=== PATIENT | female | born 1980 | race Caucasian/White ===

== ENCOUNTER 2016-11-29 15:05 | Emergency (ER) | payer SELFPAY ==
[2016-11-29 15:19] VITALS: BP 141/79
--- NOTE | 2016-11-29 15:32 | EDM.PDOC ---
ED HPI GENERAL MEDICAL PROBLEM - General Chief Complaint: Upper Extremity Injury/Pain Stated Complaint: RIGHT ARM AND RIGHT HIP PAIN Time Seen by Provider: 11/29/16 15:17 Source of Information: Reports: Patient History Limitations: Reports: No Limitations - History of Present Illness INITIAL COMMENTS - FREE TEXT/NARRATIVE: History of present illness: []Patient was at work and slipped on the floor landing on her right hip and right arm. She states her hip no longer hurts but her arm hurts from her wrist, elbow, humerus and shoulder. Review of systems: As per history of present illness and below otherwise all systems reviewed and negative. Past medical history: As per history of present illness and as reviewed below otherwise noncontributory. Surgical history: As per history of present illness and as reviewed below otherwise noncontributory. Social history: No reported history of drug or alcohol abuse. Family history: As per history of present illness and as reviewed below otherwise noncontributory. Physical exam: General: Well developed, well nourished in NAD HEENT: Atraumatic, normocephalic, pupils reactive, negative for conjunctival pallor or scleral icterus, mucous membranes moist, throat clear, neck supple, nontender, trachea midline. Lungs: Clear to auscultation, breath sounds equal bilaterally, chest nontender. Heart: S1S2, regular, negative for clicks, rubs, or JVD. Abdomen: Soft, nondistended, nontender. Negative for masses or hepatosplenomegaly. Negative for costovertebral tenderness. Pelvis: Stable nontender. Genitourinary: Deferred. Rectal: Deferred. Extremities: Atraumatic, negative for cords or calf pain. Neurovascular unremarkable. Neuro: Awake, alert, oriented. Cranial nerves II through XII unremarkable. Cerebellum unremarkable. Motor and sensory unremarkable throughout. Exam nonfocal. Diagnostics: []X-rays of right arm Therapeutics: []Motrin for pain Impression: []Right arm contusion Plan: []Ice to arm and Motrin for pain Definitive disposition and diagnosis as appropriate pending reevaluation and review of above. right forearm Pain Score (Numeric/FACES): 9 - Related Data Allergies Allergy/AdvReac Type Severity Reaction Status Date / Time ketorolac tromethamine Allergy Vomiting Verified 11/29/16 15:11 [From Toradol] tramadol HCl [From Ultram] AdvReac Vomiting Verified 11/29/16 15:11 Home Meds: Home Meds . 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 Musculoskeletal History: Reports: None Neurological History: Reports: None Psychiatric History: Reports: None Endocrine/Metabolic History: Reports: None Hematologic History: Reports: None Immunologic History: Reports: None Oncologic (Cancer) History: Reports: None Dermatologic History: Reports: None - Infectious Disease History Infectious Disease History: Reports: None - Past Surgical History Head Surgeries/Procedures: Reports: None HEENT Surgical History: Reports: None Female Surgical History: Reports: Section Social & Family History - Family History Family Medical History: Noncontributory - Tobacco Use Smoking Status *Q: Never Smoker Second Hand Smoke Exposure: Yes - Recreational Drug Use Recreational Drug Use: No Review of Systems - Review of Systems Review Of Systems: See Below (See history of present illness) ED EXAM, GENERAL - Physical Exam Exam: See Below (See history of present illness) Course - Vital Signs Last Recorded V/S: Last Vital Signs Temp 36.3 C 11/29/16 15:16 Pulse 79 11/29/16 15:16 Resp 18 11/29/16 15:16 BP 141/79 H 11/29/16 15:16 Pulse Ox 99 11/29/16 15:16 - Orders/Labs/Meds Orders: Active Orders 24 hr Category Date Time Status Forearm 2V Rt [CR] Stat Exams 11/29/16 16:52 Taken Humerus Rt [CR] Stat Exams 11/29/16 16:51 Taken Wrist 2V Rt [CR] Stat Exams 11/29/16 16:51 Taken Meds: Medications Discontinued Medications Generic Name Dose Route Start Last Admin Trade Name Freq PRN Reason Stop Dose Admin Ibuprofen 600 mg 11/29/16 15:46 11/29/16 16:32 Motrin PO 11/29/16 15:47 600 mg ONETIME ONE Administration Departure - Departure Time of Disposition: 17:57 Disposition: Home, Self-Care 01 Condition: Good Clinical Impression: Contusion of arm, right, multiple sites Qualifiers: Encounter type: initial encounter Qualified Code(s): S40.021A - Contusion of right upper arm, initial encounter Clinical Impression: (Ruled Out): Contusion of arm, right - Discharge Information Forms: ED Department Discharge Additional Instructions: The following information is given to patients seen in the emergency department who are being discharged to home. This information is to outline your options for follow-up care. We provide all patients seen in our emergency department with a follow-up referral. The need for follow-up, as well as the timing and circumstances, are variable depending upon the specifics of your emergency department visit. If you don't have a primary care physician on staff, we will provide you with a referral. We always advise you to contact your personal physician following an emergency department visit to inform them of the circumstance of the visit and for follow-up with them and/or the need for any referrals to a consulting specialist. The emergency department will also refer you to a specialist when appropriate. This referral assures that you have the opportunity for follow-up care with a specialist. All of these measure are taken in an effort to provide you with optimal care, which includes your follow-up. Under all circumstances we always encourage you to contact your private physician who remains a resource for coordinating your care. When calling for follow-up care, please make the office aware that this follow-up is from your recent emergency room visit. If for any reason you are refused follow-up, please contact the [facility] Emergency Department at and asked to speak to the emergency department charge nurse. Zulema for pain, ice to contusions, follow-up with PMD [facility] [address] [place] [id number] - My Orders Last 24 Hours: My Active Orders 11/29/16 16:51 Humerus Rt [CR] Stat Wrist 2V Rt [CR] Stat 11/29/16 16:52 Forearm 2V Rt [CR] Stat - Assessment/Plan Last 24 Hours: My Active Orders 11/29/16 16:51 Humerus Rt [CR] Stat Wrist 2V Rt [CR] Stat 11/29/16 16:52 Forearm 2V Rt [CR] Stat
[2016-11-29] MEDS ORDERED: Ibuprofen 600 MG Tab PO ONE (15:46)
--- NOTE | 2016-11-30 10:30 | CR ---
EXAM DATE: 11/29/16 PATIENT'S AGE: 36 Patient: FIGUEROA OCONNELL Facility: [place], [place] Site . Site : 1980 Study: XRay Extremity Right humerus [id number]/24/2017 5:25:58 PM Ordering Physician: Scott Navarrete Final Report: INDICATION: Pain TECHNIQUE: Two views right humerus COMPARISON: None FINDINGS: Bones: Alignment is normal. No fractures or bone lesions. Joint spaces: Unremarkable. Soft tissues: Unremarkable. IMPRESSION: Negative. Dictated by Morro Escobar MD @ Nov 29 2016 5:43PM (Electronic Signature) Report Signed by Proxy. GLENYS
--- NOTE | 2016-11-30 10:32 | CR ---
EXAM DATE: 11/29/16 PATIENT'S AGE: 36 Patient: FIGUEROA OCONNELL Facility: [place], [place] Site . Site : 1980 Study: XRay Extremity Right wrist [id number] 5:26:30 PM Ordering Physician: Scott Navarrete Final Report: INDICATION: Pain TECHNIQUE: Two views right wrist COMPARISON: None FINDINGS: Bones: Alignment is normal. No fractures or bone lesions. Joint spaces: Unremarkable. Soft tissues: Unremarkable. IMPRESSION: Negative. Dictated by Morro Escobar MD @ 11/29/2016 5:48:20 PM Dictated by: Morro Escobar MD @ 11/29/2016 17:48:24 (Electronic Signature) Report Signed by Proxy. GLENYS
--- NOTE | 2016-11-30 10:33 | CR ---
EXAM DATE: 11/29/16 PATIENT'S AGE: 36 Patient: FIGUEROA OCONNELL Facility: [place], [place] Site . Site : 1980 Study: XRay Extremity Right forearm [id number]/[id number] 5:26:53 PM Ordering Physician: Scott Navarrete Final Report: INDICATION: Pain following fall TECHNIQUE: Two views right forearm COMPARISON: None FINDINGS: Bones: Alignment is normal. No fractures or bone lesions. Joint spaces: Unremarkable. Soft tissues: Unremarkable. IMPRESSION: Negative. Dictated by Morro Escobar MD @ 11/29/2016 5:46:07 PM Dictated by: Morro Escobar MD @ 11/29/2016 17:46:12 (Electronic Signature) Report Signed by Proxy. [facility] HOSPITALDeanna
== END 2016-11-29 18:13 | disposition home or self-care (01) ==
LOC: MW.ED 15:05
DX: S40.021A Contusion of right upper arm, initial encounter (principal); Z88.6 Allergy status to analgesic agent; Z88.5 Allergy status to narcotic agent; W01.10XA Fall on same level from slipping, tripping and stumbling with subsequent striking against unspecified object, initial encounter
CPT/HCPCS: 73060; 73090; 73100; 99283; A9270; 99282

== ENCOUNTER 2017-08-23 14:10 | Emergency (ER) | payer SELFPAY ==
--- NOTE | 2017-08-23 14:31 | EDM.PDOC ---
ED HPI GENERAL MEDICAL PROBLEM - General Chief Complaint: Lower Extremity Injury/Pain Stated Complaint: RIGHT LEG PAIN Time Seen by Provider: 08/23/17 14:30 Source of Information: Reports: Patient - History of Present Illness INITIAL COMMENTS - FREE TEXT/NARRATIVE: HISTORY AND PHYSICAL: History of present illness: Patient presents with 4 out of 10 knee pain nonradiating for 3 months denies any injury or trauma No fever nausea vomiting chills sweats ] Review of systems: As per history of present illness and below otherwise all systems reviewed and negative. Past medical history: As per history of present illness and as reviewed below otherwise noncontributory. Surgical history: As per history of present illness and as reviewed below otherwise noncontributory. Social history: No reported history of drug or alcohol abuse. Family history: As per history of present illness and as reviewed below otherwise noncontributory. Physical exam: HEENT: Atraumatic, normocephalic, pupils reactive, negative for conjunctival pallor or scleral icterus, mucous membranes moist, throat clear, neck supple, nontender, trachea midline. Lungs: Clear to auscultation, breath sounds equal bilaterally, chest nontender. Heart: S1S2, regular, negative for clicks, rubs, or JVD. Abdomen: Soft, nondistended, nontender. Negative for masses or hepatosplenomegaly. Negative for costovertebral tenderness. Pelvis: Stable nontender. Genitourinary: Deferred. Rectal: Deferred. Extremities: Atraumatic, negative for cords or calf pain. Neurovascular unremarkable. Right knee hip and ankle and affected no ballooning of the patella , mild joint line tenderness medially, tendons and ligaments appear stable no bruising redness warmth or exudate no lesion Neuro: Awake, alert, oriented. Cranial nerves II through XII unremarkable. Cerebellum unremarkable. Motor and sensory unremarkable throughout. Exam nonfocal. Diagnostics: [Right knee complete Right lower extremity ultrasound to rule out DVT ] Therapeutics: [ Toradol 10 mg by mouth 3 times a day when necessary #15 no refill patient declined crutches or Kashif wrap ] Follow-up with orthopedist Impression: [ right knee pain Mild effusion on x-ray] Definitive disposition and diagnosis as appropriate pending reevaluation and review of above. Right Knee Pain Score (Numeric/FACES): 7 - Related Data Allergies Allergy/AdvReac Type Severity Reaction Status Date / Time ketorolac tromethamine Allergy Vomiting Verified 08/23/17 14:27 [From Toradol] tramadol HCl [From Ultram] AdvReac Vomiting Verified 08/23/17 14:27 Home Meds: Home Meds . 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 Musculoskeletal History: Reports: None Neurological History: Reports: None Psychiatric History: Reports: None Endocrine/Metabolic History: Reports: None Hematologic History: Reports: None Immunologic History: Reports: None Oncologic (Cancer) History: Reports: None Dermatologic History: Reports: None - Infectious Disease History Infectious Disease History: Reports: None - Past Surgical History Head Surgeries/Procedures: Reports: None HEENT Surgical History: Reports: None Female Surgical History: Reports: Section Social & Family History - Family History Family Medical History: Noncontributory - Tobacco Use Smoking Status *Q: Never Smoker Second Hand Smoke Exposure: Yes - Recreational Drug Use Recreational Drug Use: No Review of Systems - Review of Systems Review Of Systems: ROS reveals no pertinent complaints other than HPI. ED EXAM, GENERAL - Physical Exam Exam: See Below Course - Vital Signs Last Recorded V/S: Last Vital Signs Temp 98.3 F 08/23/17 14:27 Pulse 75 08/23/17 14:27 Resp 16 08/23/17 14:27 BP 158/93 H 08/23/17 14:27 Pulse Ox 96 08/23/17 14:27 Departure - Departure Time of Disposition: 15:49 Disposition: Home, Self-Care 01 Condition: Good Clinical Impression: Knee pain - Discharge Information Referrals: PCP,None [Primary Care Provider] - Forms: ED Department Discharge Additional Instructions: Medication as prescribed Return if symptoms persist or worsen Follow-up with orthopedist, call for appointment to schedule appropriate follow- up [facility] [address], [address] [place] [address] my orthopedic The following information is given to patients seen in the emergency department who are being discharged to home. This information is to outline your options for follow-up care. We provide all patients seen in our emergency department with a follow-up referral. The need for follow-up, as well as the timing and circumstances, are variable depending upon the specifics of your emergency department visit. If you don't have a primary care physician on staff, we will provide you with a referral. We always advise you to contact your personal physician following an emergency department visit to inform them of the circumstance of the visit and for follow-up with them and/or the need for any referrals to a consulting specialist. The emergency department will also refer you to a specialist when appropriate. This referral assures that you have the opportunity for follow-up care with a specialist. All of these measure are taken in an effort to provide you with optimal care, which includes your follow-up. Under all circumstances we always encourage you to contact your private physician who remains a resource for coordinating your care. When calling for follow-up care, please make the office aware that this follow-up is from your recent emergency room visit. If for any reason you are refused follow-up, please contact the [facility] emergency department at and asked to speak to the emergency department charge nurse.
--- NOTE | 2017-08-23 15:22 | US ---
ULTRASOUND EXAMINATION OF the right lower extremity WITH DOPPLER HISTORY: Pain FINDINGS: Examination of the right leg was performed from the groin to the calf region. All visualized segment s including common femoral, proximal greater saphenous, superficial femoral, popliteal and calf veins appear patent with good compressibility and augmentation. There is no evidence of a deep vein throm bosis. IMPRESSION: No evidence of a DVT.
--- NOTE | 2017-08-23 15:28 | CR ---
EXAMINATION: Right knee HISTORY: Pain COMPARISON: None TECHNIQUE: 3 views FINDINGS/IMPRESSION: There is no acute osseous abnormality, dislocation, or fracture. Bone mineraliza tion and joint spaces are preserved. Small suprapatellar joint effusion is noted. Mild prepatellar so ft tissue edema.
[2017-08-23 15:55] VITALS: BP 143/84
== END 2017-08-23 15:57 | disposition home or self-care (01) ==
LOC: MW.ED 14:10
DX: M25.461 Effusion, right knee (principal); M25.561 Pain in right knee; Z88.6 Allergy status to analgesic agent; Z77.22 Contact with and (suspected) exposure to environmental tobacco smoke (acute) (chronic)
CPT/HCPCS: 73562-26-RT; 73562-RT; 93971-26-RT; 93971-RT; 99284-25

== ENCOUNTER 2019-05-30 13:15 | Emergency (ER) | payer BC ==
--- NOTE | 2019-05-30 13:57 | EDM.PDOC ---
ED HPI GENERAL MEDICAL PROBLEM - General Chief Complaint: ENT Problem Stated Complaint: FLU SYMPTOMS Time Seen by Provider: 05/30/19 13:56 Source of Information: Reports: Patient History Limitations: Reports: No Limitations - History of Present Illness INITIAL COMMENTS - FREE TEXT/NARRATIVE: HISTORY AND PHYSICAL: History of present illness: Patient is a 39-year-old female presents to the ED with complaint of cough. She states she has had a cough for the past month but has been worse over the past 3 days. She reports a fever of 102F 3 days ago and has had some nausea and vomiting. She denies chest pain, shortness of breath, abdominal pain, diarrhea. She denies significant past medical history. Review of systems: As per history of present illness and below otherwise all systems reviewed and negative. Past medical history: As per history of present illness and as reviewed below otherwise noncontributory. Surgical history: As per history of present illness and as reviewed below otherwise noncontributory. Social history: No reported history of drug or alcohol abuse. Family history: As per history of present illness and as reviewed below otherwise noncontributory. Physical exam: General: Patient sitting comfortably in no acute distress and nontoxic appearing HEENT: Atraumatic, normocephalic, pupils reactive, negative for conjunctival pallor or scleral icterus, mucous membranes moist, throat clear, neck supple, nontender, trachea midline. No meningeal signs. Lungs: Clear to auscultation, breath sounds equal bilaterally, chest nontender. Heart: S1S2, regular, negative for clicks, rubs, or overt murmur. Abdomen: Soft, nondistended, nontender. Negative for masses or hepatosplenomegaly. Negative for costovertebral tenderness. No rigidity, rebound , guarding. Pelvis: Stable nontender. Genitourinary: Deferred. Rectal: Deferred. Extremities: Atraumatic, negative for cords or calf pain. Neurovascular unremarkable. Neuro: Awake, alert, oriented. Cranial nerves II through XII unremarkable. Cerebellum unremarkable. Motor and sensory unremarkable throughout. Exam nonfocal. Notes: Diagnostics: Influenza, CXR Therapeutics: Prescriptions: Impression: Acute bronchitis Plan: Take medications as prescribed Follow-up with primary care provider Return to ED as needed discussed Definitive disposition and diagnosis as appropriate pending reevaluation and review of above. Body Pain Score (Numeric/FACES): 6 - Related Data Allergies Allergy/AdvReac Type Severity Reaction Status Date / Time ketorolac tromethamine Allergy Vomiting Verified 05/30/19 13:51 [From Toradol] tramadol HCl [From Ultram] AdvReac Vomiting Verified 05/30/19 13:51 Home Meds: Home Meds Albuterol [Ventolin HFA] 1 puff INH Q4H #1 inhaler 05/30/19 [Rx] Azithromycin [Zithromax] 250 mg PO ASDIRECTED #1 dosepk 05/30/19 [Rx] Past Medical History - Past Health History Medical/Surgical History: Denies Medical/Surgical History HEENT History: Reports: None Cardiovascular History: Reports: None Respiratory History: Reports: None Gastrointestinal History: Reports: Other (See Below) Other Gastrointestinal History: Celiac ds Genitourinary History: Reports: None 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 Musculoskeletal History: Reports: None Neurological History: Reports: None Psychiatric History: Reports: None Endocrine/Metabolic History: Reports: None Hematologic History: Reports: None Immunologic History: Reports: None Oncologic (Cancer) History: Reports: None Dermatologic History: Reports: None - Infectious Disease History Infectious Disease History: Reports: Chicken Pox - Past Surgical History Head Surgeries/Procedures: Reports: None HEENT Surgical History: Reports: None Female Surgical History: Reports: Section Social & Family History - Family History Family Medical History: Noncontributory - Tobacco Use Smoking Status *Q: Never Smoker Second Hand Smoke Exposure: No - Caffeine Use Caffeine Use: Reports: None - Recreational Drug Use Recreational Drug Use: No ED ROS ENT - Review of Systems Review Of Systems: Comprehensive ROS is negative, except as noted in HPI. ED EXAM, ENT - Physical Exam Exam: See Below (see dictation) Course - Vital Signs Last Recorded V/S: Last Vital Signs Temp 97.6 F 05/30/19 13:51 Pulse 75 05/30/19 13:51 Resp 16 05/30/19 13:51 BP 162/94 H 05/30/19 13:51 Pulse Ox 99 05/30/19 13:51 Departure - Departure Time of Disposition: 14:59 Disposition: Home, Self-Care 01 Condition: Good Clinical Impression: Acute bronchitis - Discharge Information Prescriptions: Albuterol [Ventolin HFA] 1 puff INH Q4H #1 inhaler Azithromycin [Zithromax] 250 mg PO ASDIRECTED #1 dosepk Referrals: PCP,None [Primary Care Provider] - Forms: ED Department Discharge Additional Instructions: The following information is given to patients seen in the emergency department who are being discharged to home. This information is to outline your options for follow-up care. We provide all patients seen in our emergency department with a follow-up referral. The need for follow-up, as well as the timing and circumstances, are variable depending upon the specifics of your emergency department visit. If you don't have a primary care physician on staff, we will provide you with a referral. We always advise you to contact your personal physician following an emergency department visit to inform them of the circumstance of the visit and for follow-up with them and/or the need for any referrals to a consulting specialist. The emergency department will also refer you to a specialist when appropriate. This referral assures that you have the opportunity for follow-up care with a specialist. All of these measure are taken in an effort to provide you with optimal care, which includes your follow-up. Under all circumstances we always encourage you to contact your private physician who remains a resource for coordinating your care. When calling for follow-up care, please make the office aware that this follow-up is from your recent emergency room visit. If for any reason you are refused follow-up, please contact the [facility] Emergency Department at and asked to speak to the emergency department charge nurse. [facility] [address] [place] [address] [id number] [address] [address] Take medications as prescribed Follow-up with primary care provider Return to ED as needed discussed Sepsis Event Note - Evaluation Sepsis Screening Result: No Definite Risk - Focused Exam Vital Signs: Vital Signs Temp Pulse Resp BP Pulse Ox 05/30/19 13:51 97.6 F 75 16 162/94 H 99 Date Exam was Performed: 05/30/19 Time Exam was Performed: 15:03
--- NOTE | 2019-05-30 14:52 | CR ---
Chest: 2 views of the chest were obtained. Comparison: No prior chest x-ray. Heart size and mediastinum are normal. Lungs are clear. Bony structures appear within normal limits. Surgical clips are seen within the upper abdomen. Impression: 1. Nothing acute is appreciated on 2 view chest x-ray. Diagnostic code #2 This report was dictated in [place] Standard Time
[2019-05-30 15:34] VITALS: BP 162/96; PULSE 73
== END 2019-05-30 15:13 | disposition home or self-care (01) ==
LOC: MW.ED 13:15
DX: J20.9 Acute bronchitis, unspecified (principal); Z88.6 Allergy status to analgesic agent
CPT/HCPCS: 71046; 71046-26; 87804; 99283-25

== ENCOUNTER 2023-11-23 17:07 | Emergency (ER) | payer SELFPAY ==
[2023-11-23] MEDS: Diphtheria,Pertussis(Acell),Tetanus Vaccine 0.5 ML Syringe IM ONE (18:02)
[2023-11-23] MEDS: Lidocaine 1% with EPINEPHrine 1:100,000 10 ML MDV INJECT ONE (18:06)
[2023-11-23 18:38] VITALS: BP 112/62; PULSE 65
== END 2023-11-23 18:37 | disposition home or self-care (01) ==
LOC: MW.ED 17:07
DX: S61.512A Laceration without foreign body of left wrist, initial encounter (principal); Z23 Encounter for immunization; Z75.8 Other problems related to medical facilities and other health care; Z88.5 Allergy status to narcotic agent; Z88.6 Allergy status to analgesic agent; Z86.16 Personal history of COVID-19; Z90.49 Acquired absence of other specified parts of digestive tract; W26.8XXA Contact with other sharp object(s), not elsewhere classified, initial encounter
CPT/HCPCS: 12001; 90471; 90715; 99282-25; 99283; J3490

== ENCOUNTER 2023-11-30 15:44 | Emergency (ER) | payer SELFPAY ==
[2023-11-30 15:54] VITALS: BP 129/73; PULSE 90
== END 2023-11-30 15:54 | disposition home or self-care (01) ==
LOC: MW.ED 15:44
DX: Z48.02 Encounter for removal of sutures (principal)
CPT/HCPCS: 99281

== ENCOUNTER 2025-03-17 10:55 | Emergency (ER) | payer SELFPAY ==
[2025-03-17] MEDS ORDERED: Sodium Chloride 0.9% 10 ML Syringe FLUSH PRN (10:56)
[2025-03-17] MEDS ORDERED: Sodium Chloride 0.9% 2.5 ML Syringe FLUSH PRN (10:56)
[2025-03-17 11:09] LABS: MEAN PLATELET VOLUME 12.4 fL (9.4-12.3); NRBC ABSOLUTE 0.04 K/uL (0.00-0.02); NRBC PERCENT 0.2 /100WBC (0.0-0.2); PLATELET COUNT,PLT 310 K/uL (150-400); RED BLOOD CELL COUNT 2.50 M/uL (4.10-5.30); WHITE BLOOD CELL COUNT,WBC 25.81 K/uL (3.9-11.3)
[2025-03-17 11:20] LABS: INR 1.32 (0.86-1.11); PTT,PARTIAL THROMBOPLSTIN TIME 40.5 SEC (23.9-30.7)
[2025-03-17 11:27] LABS: IRON,FE 55.0 ug/dL (50-175); PERCENT FE SATURATION 23.61 % (20-55)
[2025-03-17 11:31] LABS: LYMPHOCYTES ABSOLUTE MAN 0.26 K/uL (1.00-4.80); LYMPHOCYTES PERCENT MAN 1 % (24-44); METAMYELOCYTE ABSOLUTE MAN 0.26; METAMYELOCYTE PERCENT MAN 1 %; MONOCYTES ABSOLUTE MAN 1.03 K/uL (0.00-0.80); MONOCYTES PERCENT MAN 4 % (0-8); SEG NEUTROPHILS ABSOLUTE MAN 24.26 K/uL (1.80-7.70); SEG NEUTROPHILS PERCENT MAN 94 % (41-71)
[2025-03-17 11:33] LABS: A/G RATIO 0.6 (0.9-1.6); ALANINE AMINOTRANSFERASE,ALT 17 IU/L (14-63); ASPARTATE AMNIOTRANSFERASE,AST 32 IU/L (15-37); BILIRUBIN TOTAL 0.8 mg/dL (0.2-1.0); BLOOD UREA NITROGEN,BUN 112 mg/dL (7.0-18.0); CHLORIDE,CL 79 mmol/L (98-107); CREATININE 6.3 mg/dL (0.6-1.0); GLUCOSE RANDOM 193 mg/dL (74-106); POTASSIUM,K 3.4 mmol/L (3.5-5.1); PRO B-TYPE NATRIUR PEPT,BNPPRO 1187 pg/mL (0-125); PROTEIN TOTAL,TP 6.9 g/dL (6.4-8.2)
[2025-03-17] MEDS: cefTRIAXone 2 GM in Water For Injection, Sterile 20 ML IVPUSH ONE (11:35)
[2025-03-17] MEDS: Ondansetron 4 MG/2 ML SDV IVPUSH ONE (11:35)
[2025-03-17 11:46] LABS: ESTIMATED GFR 8 mL/min (>60); SODIUM,NA 111 mmol/L (136-145)
[2025-03-17 12:00] LABS: CARBON DIOXIDE,CO2 < 5.0 mmol/L (21.0-32.0)
[2025-03-17] MEDS ORDERED: Furosemide 40 MG/4 ML VIAL IVPUSH ONE (12:02)
[2025-03-17 12:19] LABS: GLUCOSE,URINE 100 mg/dL (NEGATIVE); OCCULT BLOOD,URINE LARGE (NEGATIVE)
[2025-03-17 12:29] LABS: APPEARANCE,URINE BLOODY
[2025-03-17 12:30] LABS: EPITHELIAL CELLS,URINE RARE (NONE-FEW)
[2025-03-17 12:58] LABS: CANDIDA DNA PROBE NEGATIVE (NEGATIVE); GARDNERELLA DNA PROBE NEGATIVE (NEGATIVE); TRICHOMONAS DNA PROBE NEGATIVE (NEGATIVE)
[2025-03-17 13:12] LABS: BASE EXCESS VENOUS -21.5 (-2.0-3.0); BICARBONATE,VENOUS 6.0 mEq/L (22-29); PCO2 VENOUS 18.0 mmHG (41-51); PH,VENOUS 7.12 (7.32-7.43); PO2 VENOUS 32.0 mmHG (35-45)
[2025-03-17 13:13] VITALS: BP 110/68; PULSE 91
[2025-03-17 13:33] LABS: A/G RATIO 0.6 (0.9-1.6); ALANINE AMINOTRANSFERASE,ALT 18 IU/L (14-63); ASPARTATE AMNIOTRANSFERASE,AST 34 IU/L (15-37); BILIRUBIN TOTAL 0.7 mg/dL (0.2-1.0); BLOOD UREA NITROGEN,BUN 110 mg/dL (7.0-18.0); CARBON DIOXIDE,CO2 5.9 mmol/L (21.0-32.0); CHLORIDE,CL 82 mmol/L (98-107); CREATININE 6.1 mg/dL (0.6-1.0); GLUCOSE RANDOM 173 mg/dL (74-106); POTASSIUM,K 3.5 mmol/L (3.5-5.1); PROTEIN TOTAL,TP 6.6 g/dL (6.4-8.2)
[2025-03-17 13:34] LABS: ESTIMATED GFR 8 mL/min (>60); SODIUM,NA 113 mmol/L (136-145)
[2025-03-17 13:42] LABS: C. TRACHOMATIS BY PCR NOT DETECTED; N. GONORRHOEAE BY PCR NOT DETECTED
== END 2025-03-17 15:16 ==
LOC: MW.ED 10:55
DX: A41.9 Sepsis, unspecified organism (principal); R65.20 Severe sepsis without septic shock; N17.9 Acute kidney failure, unspecified; N93.9 Abnormal uterine and vaginal bleeding, unspecified; N13.2 Hydronephrosis with renal and ureteral calculous obstruction; N30.80 Other cystitis without hematuria; D72.829 Elevated white blood cell count, unspecified; D62 Acute posthemorrhagic anemia; R79.89 Other specified abnormal findings of blood chemistry; Z86.16 Personal history of COVID-19; Z90.49 Acquired absence of other specified parts of digestive tract; Z88.5 Allergy status to narcotic agent
CPT/HCPCS: 36415; 36430; 70450; 70490; 71045; 71250; 74176; 80053; 81001; 82803; 83036; 83550; 83605; 83690; 83735; 83880; 84100; 84484; 84703; 85014; 85018; 85025; 85610; 85730; 86850; 86900; 86901; 86920; 87040; 87077; 87086; 87088; 87186; 87480; 87491; 87510; 87591; 87660; 93005; 96361; 96365; 96366; 96368; 96375; 99285; A4216; J0696; J2405; J2543; J7030; J7070; P9016; 93010; J1171; J3490